=== PATIENT | male | born 1970 | race Caucasian/White ===

== ENCOUNTER 2016-05-18 13:35 | Emergency (ER) | END 2016-05-18 19:04 | disposition home or self-care (01) | DX: S50.02XA Contusion of left elbow, initial encounter (principal); E11.65 Type 2 diabetes mellitus with hyperglycemia; W18.39XA Other fall on same level, initial encounter; Y92.9 Unspecified place or not applicable; Z79.4 Long term (current) use of insulin | CPT/HCPCS: 73080; 80053; 81003; 82962; 85025; J1815; J7030 ==